=== PATIENT | female | born 1995 | race Caucasian/White ===

== ENCOUNTER 2017-12-11 12:33 | Emergency (ER) | payer OTHER ==
[~2017-12-11] VITALS: Ht 149.9 cm; Wt 68.1 kg
[2017-12-11 12:48] VITALS: TEMP 37; Ht 149.9 cm; Wt 68.1 kg
[2017-12-11] MEDS ORDERED: DEXAMETHASONE SOD INJ 4 MG/ML 5 ML VIAL IM ONE (13:15)
[2017-12-11] MEDS ORDERED: BCPILLS PO (13:20)
[2017-12-11] MEDS ORDERED: METH-848 PO (13:20)
--- NOTE | 2017-12-11 13:22 | EMERGENCY ROOM VISIT NOTE ---
History Report prepared by Kirti: Kenzie Silva Under the Supervision of: Dr. Mario Alberto Sarah D.O. First contact with patient: 12:52 Chief Complaint: ALLERGIC REACTION Stated Complaint: CLOSED THROAT FEELING Nursing Triage Summary: Pt has allergy to raw fruit. Made a smoothie today with raw fruit and tried it and feels like her throat is scratchy and tight, not getting worse, no difficult breathing, but throat tightness persists after taking benadryl at home. History of Present Illness The patient is a 22 year old female who presents to the Emergency Room with complaints of episodic allergic reaction for two hours. She states that she drank a smoothie with strawberries and other fresh fruit this morning and her throat began to tighten and became itchy. She felt jittery, though reports drinking coffee this morning. She has consumed smoothies in the past without issue, though notes similar symptoms when she was 15 year old. She states that her throat swelled when she at fruit at 15 years old, so she stopped eating them. She denies any rashes. She took a Benadryl at the initial start of the symptoms, though no relief. She denies any shortness of breath. She denies any history of diabetes. She has a history of hypothyroidism. Source of History: patient Onset: two hours Position: other (global ) Quality: other (allergic reaction) Timing: other (episodic) Associated Symptoms: No SOB, No rash Note: She notes throat tightening and itchy. Review of Systems See HPI for pertinent positives & negatives. A total of 10 systems reviewed and were otherwise negative. Past Medical & Surgical Medical Problems: (1) Hypothyroidism Family History Diabetes mellitus Hypertension Social History Smoking Status: Never Smoker Smokeless Tobacco Use: No Alcohol Use: occasionally Marital Status: single Housing Status: lives with roommate Occupation Status: student Current/Historical Medications Scheduled Control Pills ( Control Pills), 1 TAB PO DAILY Methimazole (Methimazole), Unknown Dose PO DAILY Allergies Coded Allergies: Azithromycin (Unverified Allergy, Unknown, SWELLING, 12/11/17) Physical Exam Vital Signs Date Time Temp Pulse Resp B/P (MAP) Pulse Ox O2 Delivery O2 Flow Rate FiO2 12/11/17 13:34 65 18 131/72 97 12/11/17 12:49 95 Room Air 12/11/17 12:48 37.0 75 18 142/85 95 Room Air Physical Exam CONSTITUTIONAL/VITAL SIGNS: Reviewed / noted above. GENERAL: Non-toxic in appearance. INTEGUMENTARY: Warm, dry, and [place]. HEAD: Normocephalic. EYES: without scleral icterus or trauma. ENT/OROPHARYNX: clear and moist. LYMPHADENOPATHY/NECK: Is supple without lymphadenopathy or meningismus. RESPIRATORY: Lungs clear and equal. CARDIOVASCULAR: Regular rate and rhythm. GI/ABDOMEN: Soft and nontender. No organomegaly or pulsatile mass. No rebound or guarding. Normal bowel sounds. EXTREMITIES: Warm and well perfused. BACK: No CVA tenderness. NEUROLOGICAL: Intact without focal deficits. PSYCHIATRIC: normal affect. MUSCULOSKELETAL: Normally developed with good muscle tone. Medical Decision & Procedures Medications Administered Medications (Trade) Dose Ordered Sig/Edgar Route Start Time Stop Time Status Last Admin Dose Admin Dexamethasone Sodium Phosphate (Dexamethasone Inj Pf) 10 mg STK-MED ONCE .ROUTE 12/11/17 13:24 12/11/17 13:25 DC 12/11/17 13:24 5 MG ED Course 1254: Previous medical records were reviewed. The patient was evaluated in room C11B. A complete history and physical examination was performed. I discussed the results and treatment plan with the patient. I answered all pertaining questions that she had. She expressed understanding and verbalized agreement. The patient will be discharged home. 1315: Ordered Decadron 5 mg IM Medical Decision Differential includes anaphylaxis, allergic reaction, airway obstruction, and infection. This is a 22-year-old female who presents to the ED with a chief complaint of possible allergic reaction to fresh fruits. The patient states that she had a smoothie that involved fresh strawberries and began to feel tingling in her throat. She took a Benadryl around 11 AM shortly after her symptoms started. She came in for evaluation because it persisted. The patient's exam was unremarkable. She denied having any hives or other symptoms of allergic reaction. The patient did not have any evidence of oropharyngeal erythema or mucous membrane involvement. She was given an IM injection of Decadron to help with her symptoms. She was felt to be stable for discharge. Medication Reconcilliation Current Medication List: was personally reviewed by me Blood Pressure Screening Patient's blood pressure: Elevated blood pressure Blood pressure disposition: Elevated BP felt to be situational Impression Primary Impression: Allergic reaction Scribe Attestation The scribe's documentation has been prepared under my direction and personally reviewed by me in its entirety. I confirm that the note above accurately reflects all work, treatment, procedures, and medical decision making performed by me. Departure Information Dispostion Home / Self-Care Referrals No Doctor, Assigned (PCP) Forms HOME CARE DOCUMENTATION FORM, IMPORTANT VISIT INFORMATION Patient Instructions My [facility] Additional Instructions Follow-up with your doctor for further care and evaluation in 1-2 days. Return to the emergency department for worsening or new symptoms or any concerns. You have been examined and treated today on an emergency basis only. This is not a substitute for, or an effort to provide, complete comprehensive medical care. It is impossible to recognize and treat all injuries or illnesses in a single emergency department visit. It is therefore important that you follow up closely with your doctor. Call as soon as possible for an appointment. Take Benadryl every 6 hours as needed for itching or tingling and throat.
[2017-12-11] MEDS ORDERED: DEXAMETHASONE **PF** INJ 10 MG/ML VIAL ONE (13:24)
[2017-12-11 13:34] VITALS: BP 131/72; PULSE 65; O2SAT 97
== END 2017-12-11 13:35 | disposition home or self-care (01) ==
LOC: C.EDB 12:36 → C.EDC 13:35
DX: T78.40XA Allergy, unspecified, initial encounter (principal); X58.XXXA Exposure to other specified factors, initial encounter; E03.9 Hypothyroidism, unspecified; Z79.3 Long term (current) use of hormonal contraceptives; Z83.3 Family history of diabetes mellitus; Z82.49 Family history of ischemic heart disease and other diseases of the circulatory system

== ENCOUNTER 2018-02-26 18:14 | Emergency (ER) | payer OTHER ==
[~2018-02-26] VITALS: Ht 149.9 cm; Wt 66.0 kg
[~2018-02-26 18:14] MED LIST: BCPILLS PO; METH-848 PO
[2018-02-26 18:20] VITALS: TEMP 37; Ht 149.9 cm; Wt 66.0 kg
[2018-02-26 20:15] LABS: BASO % 0.1 %; BASO ABS # 0.01 K/uL (0-0.2); HEMATOCRIT 41.3 % (37-47); HEMOGLOBIN 14.2 g/dL (12.0-16.0); IG# 0.02 K/uL (0.00-0.02); LYMPH % 30.3 %; LYMPH ABS # 2.56 K/uL (1.2-3.4); MEAN CELL VOLUME 85.9 fL (80-100); MEAN CORPUSCULAR HEMOGLOBIN 29.5 pg (25-34); MEAN CORPUSCULAR HGB CONC 34.4 g/dl (32-36); MONO % 6.7 %; MONO ABS # 0.57 K/uL (0.11-0.59); NEUT % 62.7 %; PLATELET COUNT 369 K/uL (130-400); RED CELL DISTRIBUTION WIDTH CV 12.9 % (11.5-14.5); RED CELL DISTRIBUTION WIDTH SD 40.8 fL (36.4-46.3); WHITE BLOOD COUNT 8.46 K/uL (4.8-10.8)
[2018-02-26 20:32] LABS: BLOOD UREA NITROGEN 11 mg/dl (7-18); CREATININE 0.74 mg/dl (0.60-1.20); GLUCOSE 76 mg/dl (70-99)
[2018-02-26] MEDS ORDERED: BISM262T3 PO (20:32)
[2018-02-26] MEDS ORDERED: METH10TA6 PO (20:32)
[2018-02-26] MEDS ORDERED: MISCCAP80 PO (20:32)
[2018-02-26 20:33] LABS: ALBUMIN 3.9 gm/dl (3.4-5.0); ALT/SGPT 20 U/L (12-78); AST/SGOT 21 U/L (15-37); CALCIUM 9.1 mg/dl (8.5-10.1); CARBON DIOXIDE 24 mmol/L (21-32); POTASSIUM 3.4 mmol/L (3.5-5.1); SODIUM 136 mmol/L (136-145)
[2018-02-26 20:43] LABS: ALKALINE PHOSPHATASE 100 U/L (45-117)
--- NOTE | 2018-02-26 21:08 | DIAGNOSTIC IMAGING REPORT ---
CHEST ONE VIEW PORTABLE CLINICAL HISTORY: racing hr cardiac arrhythmia COMPARISON STUDY: No previous studies for comparison. FINDINGS: The bones soft tissues and hemidiaphragms are normal. The cardiomediastinal silhouette is normal. The lungs are clear. The pulmonary vasculature is normal. IMPRESSION: Negative chest. The above report was generated using voice recognition software. It may contain grammatical, syntax or spelling errors. Electronically signed by: Neville Lauren M.D. 02/26/2018 9:07 PM Dictated Date/Time: 02/26/2018 9:07 PM
--- NOTE | 2018-02-26 21:40 | DIAGNOSTIC IMAGING REPORT ---
HEAD WITHOUT CONTRAST (CT) CT DOSE: 537.48 mGy.cm HISTORY: Mental status change. Paresthesias. parestesias TECHNIQUE: Multiaxial CT images of the head were performed without the use of intravenous contrast. A dose lowering technique was utilized adhering to the principles of ALARA. Comparison: None. Findings: The paranasal sinuses and mastoid air cells are clear. The calvarium and skull base are intact. The ventricles and sulci are within normal limits. There is no mass, hematoma, midline shift, or acute infarct. Impression: No acute intracranial abnormality. The above report was generated using voice recognition software. It may contain grammatical, syntax or spelling errors. Electronically signed by: Neville Lauren M.D. 02/26/2018 9:39 PM Dictated Date/Time: 02/26/2018 9:38 PM
--- NOTE | 2018-02-26 21:53 | EMERGENCY ROOM VISIT NOTE ---
History Report prepared by Kirti: Frank Mason Under the Supervision of: Dr. Mario Alberto Sarah D.O. First contact with patient: 20:28 Chief Complaint: RAPID HEART RATE Stated Complaint: NUMBNESS ON LEFT SIDE BODY/ RAPID HEART BEAT Nursing Triage Summary: patient to Ed via triage, states "I had some caffeine this morning and then my heart felt like it was racing, my left arm lilliam went numb and was tingly." History of Present Illness The patient is a 22 year old female who presents to the Emergency Room with complaints of constant numbness beginning today. The patient states that she had coffee this morning which caused her heart rate to increase and make her feel jittery. She notes that she began to feel numbness and tingling in her left arm, left cheek, right hand, as well as a dry left eye. She reports that she also has a headache but did not get much sleep last night and believes that her headache might be related to her lack of sleep. The patient states that she has a history of hypothyroidism and takes methimazole. She notes that she has not experienced similar symptoms in the past. Source of History: patient Onset: today Position: arm (left), hand (right), other (Left cheek) Quality: numbness Timing: constant Associated Symptoms: + headache Note: The patient also complains of an increased heart rate and a dry left eye. Review of Systems See HPI for pertinent positives & negatives. A total of 10 systems reviewed and were otherwise negative. Past Medical & Surgical Medical Problems: (1) Hypothyroidism Family History Diabetes mellitus Hypertension Social History Smoking Status: Never Smoker Alcohol Use: occasionally Marital Status: single Housing Status: lives with roommate Occupation Status: [employer] student Current/Historical Medications Scheduled Control Pills ( Control Pills), 1 TAB PO DAILY Bismuth Subsalicylate (Pepto Bismol Chew Tab), 1-2 TAB PO PRN UD Methimazole (Methimazole), 10 MG PO TID Probiotic Product (Probiotic), 1 CAP PO DAILY Allergies Coded Allergies: Azithromycin (Unverified Allergy, Unknown, SWELLING, 12/11/17) Physical Exam Vital Signs Date Time Temp Pulse Resp B/P (MAP) Pulse Ox O2 Delivery O2 Flow Rate FiO2 02/26/18 20:47 91 02/26/18 20:43 85 14 126/67 99 Room Air 02/26/18 18:22 100 Room Air 02/26/18 18:20 37.0 83 20 151/85 100 Room Air Physical Exam VITAL SIGNS: were reviewed as above. GENERAL:Non-toxic in appearance. SKIN: Warm dry and pink. HEAD: Normocephalic and atraumatic. OROPHARYNX: Is clear and moist NECK: Supple without lymphadenopathy or meningismus. LUNGS: clear. HEART: Regular rate and rhythm. ABDOMEN: Soft and nontender. EXTREMITIES: Warm and well perfused. NEUROLOGICALLY: Awake alert and oriented without focal deficit. Cranial nerves 2 -12 are intact. There is no pronator drift. Cerebellar testing is within normal limits. There is no nystagmus. There is no facial droop. Speech is clear. Vision is grossly normal. MUSCULOSKELETAL: Good muscle tone. No evidence of trauma. Medical Decision & Procedures ER Provider Diagnostic Interpretation: Radiology results as stated below per my review and radiologist interpretation: CHEST ONE VIEW PORTABLE FINDINGS: The bones soft tissues and hemidiaphragms are normal. The cardiomediastinal silhouette is normal. The lungs are clear. The pulmonary vasculature is normal. IMPRESSION: Negative chest. The above report was generated using voice recognition software. It may contain grammatical, syntax or spelling errors. Electronically signed by: Neville Lauren M.D. 02/26/2018 9:07 PM HEAD WITHOUT CONTRAST (CT) Findings: The paranasal sinuses and mastoid air cells are clear. The calvarium and skull base are intact. The ventricles and sulci are within normal limits. There is no mass, hematoma, midline shift, or acute infarct. Impression: No acute intracranial abnormality. The above report was generated using voice recognition software. It may contain grammatical, syntax or spelling errors. Electronically signed by: Neville Lauren M.D. 02/26/2018 9:39 PM Laboratory Results 02/26/18 19:33 Red Blood Count 4.81, Mean Corpuscular Volume 85.9, Mean Corpuscular Hemoglobin 29.5, Mean Corpuscular Hemoglobin Concent 34.4, Mean Platelet Volume 11.0, Neutrophils (%) (Auto) 62.7, Lymphocytes (%) (Auto) 30.3, Monocytes (%) (Auto) 6.7, Eosinophils (%) (Auto) 0.0, Basophils (%) (Auto) 0.1, Neutrophils # (Auto) 5.30, Lymphocytes # (Auto) 2.56, Monocytes # (Auto) 0.57, Eosinophils # (Auto) 0.00, Basophils # (Auto) 0.01 02/26/18 19:33 Test 02/26/18 19:28 02/26/18 19:33 Urine Color YELLOW Urine Appearance CLEAR (CLEAR) Urine pH 6.0 (4.5-7.5) Urine Specific [place] 1.012 (1.000-1.030) Urine Protein NEG (NEG) Urine Glucose (UA) NEG (NEG) Urine Ketones NEG (NEG) Urine Occult Blood NEG (NEG) Urine Nitrite NEG (NEG) Urine Bilirubin NEG (NEG) Urine Urobilinogen NEG (NEG) Urine Leukocyte Esterase TRACE (NEG) Urine WBC (Auto) 1-5 /hpf (0-5) Urine RBC (Auto) 0-4 /hpf (0-4) Urine Hyaline Casts (Auto) 0 /lpf (0-5) Urine Epithelial Cells (Auto) 10-20 /lpf (0-5) Urine Bacteria (Auto) NEG (NEG) White Blood Count 8.46 K/uL (4.8-10.8) Red Blood Count 4.81 M/uL (4.2-5.4) Hemoglobin 14.2 g/dL (12.0-16.0) Hematocrit 41.3 % (37-47) Mean Corpuscular Volume 85.9 fL (80-100) Mean Corpuscular Hemoglobin 29.5 pg (25-34) Mean Corpuscular Hemoglobin Concent 34.4 g/dl (32-36) Platelet Count 369 K/uL (130-400) Mean Platelet Volume 11.0 fL (7.4-10.4) Neutrophils (%) (Auto) 62.7 % Lymphocytes (%) (Auto) 30.3 % Monocytes (%) (Auto) 6.7 % Eosinophils (%) (Auto) 0.0 % Basophils (%) (Auto) 0.1 % Neutrophils # (Auto) 5.30 K/uL (1.4-6.5) Lymphocytes # (Auto) 2.56 K/uL (1.2-3.4) Monocytes # (Auto) 0.57 K/uL (0.11-0.59) Eosinophils # (Auto) 0.00 K/uL (0-0.5) Basophils # (Auto) 0.01 K/uL (0-0.2) RDW Standard Deviation 40.8 fL (36.4-46.3) RDW Coefficient of Variation 12.9 % (11.5-14.5) Immature Granulocyte % (Auto) 0.2 % Immature Granulocyte # (Auto) 0.02 K/uL (0.00-0.02) Anion Gap 8.0 mmol/L (3-11) Est Creatinine Clear Calc Drug Dose 98.5 ml/min Estimated GFR () 133.3 Estimated GFR (Non- 115.0 BUN/Creatinine Ratio 14.6 (10-20) Calcium Level 9.1 mg/dl (8.5-10.1) Total Bilirubin 0.3 mg/dl (0.2-1) Aspartate Amino Transf (AST/SGOT) 21 U/L (15-37) Alanine Aminotransferase (ALT/SGPT) 20 U/L (12-78) Alkaline Phosphatase 100 U/L (45-117) Troponin I < 0.015 ng/ml (0-0.045) Total Protein 9.0 gm/dl (6.4-8.2) Albumin 3.9 gm/dl (3.4-5.0) Globulin 5.1 gm/dl (2.5-4.0) Albumin/Globulin Ratio 0.8 (0.9-2) Thyroid Stimulating Hormone (TSH) 2.050 uIu/ml (0.300-4.500) Laboratory results as stated above per my review. ECG Per My Interpretation Indication: other (numbness) Rate (beats per minute): 89 Rhythm: sinus rhythm Findings: PVC, other (No ST elevation) ED Course 2039: Previous medical records were reviewed. The patient was evaluated in room C8. A complete history and physical examination was performed. 2154: On reevaluation, the patient is stable. I discussed the results and findings with the patient. She verbalized agreement of the treatment plan. The patient was discharged home. Medical Decision Differential includes acute coronary syndrome, myocardial infarction, CVA, TIA, anemia, infection, pneumonia, UTI, pyelonephritis, poor nutrition, dehydration, electrolyte disturbance,hypoglycemia. This is a 22-year-old female who presents to the ED with a chief complaint of feeling jittery. The patient states that she also felt some numbness and tingling in her left arm and then later her left eye felt a little dry. She reported that she developed some right hand tingling and tingling in her cheek. She has had the symptoms at various times today. She has no other complaints. She reports a very mild headache. She states that this could be related to not sleeping well last night as she was studying. Her vital signs are normal. Her neurological exam was normal. CBC and PRP are normal, urine did not show infection. CT scan of the brain did not show acute process. EKG did not show any acute abnormalities. The patient was told the results. She is felt to be stable for discharge. The cause of the symptoms are unclear. Blood Pressure Screening Patient's blood pressure: Normal blood pressure Blood pressure disposition: Did not require urgent referral Impression Primary Impression: Paresthesia Scribe Attestation The scribe's documentation has been prepared under my direction and personally reviewed by me in its entirety. I confirm that the note above accurately reflects all work, treatment, procedures, and medical decision making performed by me. Departure Information Dispostion Home / Self-Care Referrals No Doctor, Assigned (PCP) Forms HOME CARE DOCUMENTATION FORM, IMPORTANT VISIT INFORMATION, WORK / SCHOOL INSTRUCTIONS Patient Instructions My [facility] Additional Instructions Your test results did not show a cause for your symptoms. Follow-up with your doctor or [facility] for recheck on Thursday if symptoms persist. Follow-up with your doctor for further care and evaluation in 1-4 days. Return to the emergency department for worsening or new symptoms or any concerns. You have been examined and treated today on an emergency basis only. This is not a substitute for, or an effort to provide, complete comprehensive medical care. It is impossible to recognize and treat all injuries or illnesses in a single emergency department visit. It is therefore important that you follow up closely with your doctor. Call as soon as possible for an appointment.
[2018-02-26 22:06] VITALS: BP 121/61; PULSE 82; O2SAT 98
== END 2018-02-26 22:06 | disposition home or self-care (01) ==
LOC: C.EDB 18:15 → C.EDC 22:06
DX: R20.2 Paresthesia of skin (principal); I49.3 Ventricular premature depolarization; R51 Headache; E03.9 Hypothyroidism, unspecified; Z79.3 Long term (current) use of hormonal contraceptives; Z79.899 Other long term (current) drug therapy; Z88.1 Allergy status to other antibiotic agents